=== PATIENT | female | born 1945 | race Caucasian/White ===

== ENCOUNTER 2017-03-27 09:01 | Emergency (ER) | payer OTHER ==
[~2017-03-27] VITALS: Ht 165.1 cm; Wt 65.8 kg
[2017-03-27 09:10] VITALS: BP_SYST 122
[2017-03-27] MEDS ORDERED: MORPHINE 2 MG/ML INJ. SYRINGE IVP ONE (09:30)
[2017-03-27] MEDS ORDERED: ONDANSETRON HCL 4 MG/2 ML VIAL IVP ONE (09:30)
[2017-03-27] MEDS ORDERED: ETOMIDATE 20 MG/ 10 ML VIAL (AMIDATE) IVP ONE (09:45)
[2017-03-27 11:01] VITALS: BP_SYST 148
== END 2017-03-27 11:01 | disposition home or self-care (01) ==
LOC: SED 09:01
DX: S42.251A Displaced fracture of greater tuberosity of right humerus, initial encounter for closed fracture (principal); W01.0XXA Fall on same level from slipping, tripping and stumbling without subsequent striking against object, initial encounter; Y93.89 Activity, other specified; Y92.89 Other specified places as the place of occurrence of the external cause; Y99.8 Other external cause status
CPT/HCPCS: 23665; 73030; 96374; 96375; 99152; 99285; J2270; J2405; J3490; J7030